=== PATIENT | female | born 1965 | race Hispanic/Latino ===

== ENCOUNTER 2018-11-25 04:59 | Emergency (ER) | payer OTHER, MEDICARE ==
[2018-11-25 05:25] VITALS: RESP 20; O2SAT 99
[2018-11-25 05:56] LABS: SQUAMOUS EPITHIAL 5 /hpf (0-5); URINE BACTERIA RARE (<OCC); URINE BILIRUBIN NEGATIVE (NEGATIVE); URINE BLOOD 1+ (NEGATIVE); URINE CLARITY Clear (Clear); URINE COLOR Yellow (YELLOW); URINE GLUCOSE (UA) NORMAL (Normal); URINE LEUKOCYTE ESTERASE NEG Leu/uL (Negative); URINE PROTEIN NEGATIVE (NEGATIVE); URINE UROBILINOGEN NORMAL mg/dL (0.2-1.0)
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
[2018-11-25] MEDS ORDERED: cefTRIAXone (Rocephin) 250 mg Inj IM STA (07:22)
[2018-11-25 09:27] VITALS: BP 132/81; PULSE 86; TEMP 98.1
== END 2018-11-25 09:26 | disposition home or self-care (01) ==
LOC: C.ER 04:59
DX: T76.21XA Adult sexual abuse, suspected, initial encounter (principal)
CPT/HCPCS: 81001; 84703; 96372; 99285; J0696